=== PATIENT | male | born 1965 ===

== ENCOUNTER → 2021-07-16 08:00 | Outpatient (CLI) | payer OTHER ==
[~2021-07-16] VITALS: Ht 180.3 cm; Wt 90.7 kg
[~2021-07-16 08:00] MED LIST: DIOVAN320 MG PO; TOPROL XL25 M1 PO
== END | disposition home or self-care (01) ==
LOC: LAB 08:00 → ADM 10:15 → EDSTATUS 10:15 → SURH 07-17 10:15
PROVIDERS: ATTEND Surgery
DX: D12.1 Benign neoplasm of appendix (principal); Z03.818 Encounter for observation for suspected exposure to other biological agents ruled out

== ENCOUNTER 2021-07-24 08:26 | Outpatient (CLI) | payer OTHER | END 2021-07-24 08:38 | disposition home or self-care (01) | LOC: LAB 08:26 | PROVIDERS: ATTEND Internal Medicine Hematology & Oncology | DX: D50.8 Other iron deficiency anemias (principal); D68.8 Other specified coagulation defects; I10 Essential (primary) hypertension; C91.41 Hairy cell leukemia, in remission; Z86.010 Personal history of colon polyps; K63.5 Polyp of colon; R74.02 Elevation of levels of lactic acid dehydrogenase [LDH]; K76.89 Other specified diseases of liver; D69.1 Qualitative platelet defects ==

== ENCOUNTER 2021-10-05 10:45 | Inpatient (IN) | payer OTHER ==
[~2021-10-05] VITALS: Ht 172.7 cm; Wt 95.3 kg
[2021-10-14] MEDS ORDERED: PERCOCET 5-3251 EACH PO (10:42)
[2021-10-14] MEDS ORDERED: LEVSIN/SL0.125 MG SL (10:42)
== END 2021-10-14 13:53 | disposition home or self-care (01) | DRG 330 ==
LOC: EDSTATUS 10:45 → ADM 10:45 → SURH 10-09 09:00 → O/R 10-09 09:09 → SURH 10-09 10:45
PROVIDERS: ADMIT Surgery; ATTEND Surgery
PROC: 0DTJ4ZZ Resection of Appendix, Percutaneous Endoscopic Approach (ICD-10-PCS; 2021-10-09)
PROC: 0DTH4ZZ Resection of Cecum, Percutaneous Endoscopic Approach (ICD-10-PCS; principal; 2021-10-09 09:00)
DX: D12.1 Benign neoplasm of appendix (principal); C91.40 Hairy cell leukemia not having achieved remission; D68.8 Other specified coagulation defects; I11.9 Hypertensive heart disease without heart failure; R14.0 Abdominal distension (gaseous); D69.6 Thrombocytopenia, unspecified